=== PATIENT | female | born 1995 | race Caucasian/White ===

== ENCOUNTER 2021-06-22 08:50 | Emergency (ER) | payer BC ==
[2021-06-22] MEDS ORDERED: SODIUM CHLORIDE 0.9% 1,000 ML IV STA (10:10)
[2021-06-22] MEDS ORDERED: cefTRIAXone 1 GM in SODIUM CHLORIDE 0.9% MINIBAG 100 ML IV STA (10:10)
[2021-06-22] MEDS ORDERED: KETOROLAC 30 MG/ML VIAL IVP STA (10:10)
[2021-06-22] MEDS ORDERED: DEXAMETHASONE 10 MG/ML VIAL IVP STA (10:10)
[2021-06-22 10:50] LABS: BASOPHILS # (AUTO) 0.1 10^3/uL (0.0-0.1); BASOPHILS % (AUTO) 0.7 %; EOSINOPHILS # (AUTO) 0.1 10^3/uL (0.0-0.7); EOSINOPHILS % (AUTO) 0.8 %; HCT - HEMATOCRIT 41.6 % (37.0-47.0); LYMPHOCYTES # (AUTO) 2.4 10^3/uL (1.5-3.5); LYMPHOCYTES % (AUTO) 19.9 %; MEAN CORPUSCULAR HEMOGLOBIN 28.8 pg (27.0-31.0); MEAN CORPUSCULAR HGB CONC 33.7 g/dL (32.0-36.0); MEAN CORPUSCULAR VOLUME 85.6 fL (81.0-99.0); MEAN PLATELET VOLUME 10.4 fL (7.9-10.8); MONOCYTES # (AUTO) 0.8 10^3/uL (0.0-1.0); NEUTROPHILS # (AUTO) 8.4 10^3/uL (1.5-6.6); NEUTROPHILS % (AUTO) 71.4 %; PLT - PLATELET COUNT 345 10^3/uL (130-450); RED BLOOD COUNT 4.86 10^6/uL (4.20-5.40); RED CELL DISTRIBUTION WIDTH 11.7 % (12.0-15.0); WHITE BLOOD COUNT 11.8 x10^3/uL (4.8-10.8)
[2021-06-22 11:03] LABS: ALBUMIN 4.6 g/dL (3.2-5.5); ALBUMIN/GLOBULIN RATIO 1.3 (1.0-2.2); BILIRUBIN,TOTAL 1.1 mg/dL (0.2-1.0); CALCIUM 9.6 mg/dL (8.5-10.3); CREATININE 0.5 mg/dL (0.4-1.0); POTASSIUM 3.5 mmol/L (3.5-5.0); TOTAL PROTEIN 8.1 g/dL (6.7-8.2)
--- NOTE | 2021-06-22 11:43 | ED Physician Documentation ---
PD HPI HEENT - Stated complaint Stated Complaint: SINUS PX, ABD PX - Chief complaint Chief Complaint: General - History obtained from History obtained from: Patient - History of Present Illness Timing - onset: How many days ago (2) Timing - duration: Days (2) Timing - details: Gradual onset, Still present Location: Sinuses Improves: Medication Worsens: Swalllowing Associated symptoms: Fever, Congestion, Rhinorrhea, Cough Similar symptoms before: Diagnosis (sinusitis) Recently seen: Not recently seen - Additional information Additional information: 25-year-old female was recently returning from [place] and she has developed sinus congestion fever cough sinus pain drainage of yellow and green phlegm. She has had sinusitis a number of times previously she has had sepsis previously. She indicates that she is even having some soreness adn redness to her incision sites from her cholecystectomy that was done about 3 months ago. Review of Systems Constitutional: denies: Fever Eyes: denies: Decreased vision Ears: reports: Ear pain Nose: reports: Rhinorrhea / runny nose, Congestion, Sinus pressure / pain Cardiac: denies: Chest pain / pressure, Palpitations Respiratory: reports: Cough. denies: Dyspnea GI: denies: Abdominal Pain, Nausea, Vomiting : denies: Dysuria, Frequency Skin: denies: Rash Musculoskeletal: denies: Neck pain, Back pain, Extremity pain Neurologic: denies: Generalized weakness, Focal weakness, Numbness Psychiatric: reports: Depressed, Other (not eating/drinking well.) PD PAST MEDICAL HISTORY - Present Medications Home Medications: Ambulatory Orders Medication Instructions Recorded Confirmed Amox/Clav 875/125 [Augmentin] 1 each PO Q12H #20 tablet 06/22/21 Metoprolol Tartrate [Lopressor] 25 mg PO DAILY 06/22/21 06/22/21 Montelukast [Singulair] 10 mg PO DAILY 06/22/21 06/22/21 Ondansetron Odt [Zofran Odt] 4 mg SL Q4HR PRN 06/22/21 06/22/21 Pantoprazole [Protonix] 40 mg PO DAILY 06/22/21 06/22/21 clonazePAM [Clonazepam] 0.5 mg PO BID PRN 06/22/21 06/22/21 - Allergies Allergies/Adverse Reactions: Allergies Allergy/AdvReac Type Severity Reaction Status Date / Time prochlorperazine Allergy Unknown Verified 03/06/22 09:11 [From Compazine] PD ED PE NORMAL - Vitals Vital signs reviewed: Yes (tachy ) - General General: Alert and oriented X 3, No acute distress, Well developed/nourished, Other (thin appearing 25 y/o female ) - HEENT HEENT: Atraumatic, PERRL, EOMI, Ears normal, Other (right tonsil with exudate. bilateral maxillary sinus point tenderness) - Neck Neck: Supple, no meningeal sign, No bony TTP - Cardiac Cardiac: No murmur, Other (tachy to 120) - Respiratory Respiratory: No respiratory distress, Clear bilaterally - Abdomen Abdomen: Normal bowel sounds, Soft, Non tender, Non distended, No organomegaly - Back Back: No CVA TTP, No spinal TTP - Derm Derm: Normal color, Warm and dry, No rash - Extremities Extremities: No deformity, No edema - Neuro Neuro: Alert and oriented X 3, chemist inorganic 2-12 intact, No motor deficit, No sensory deficit, Normal speech Eye Opening: Spontaneous Motor: Obeys Commands Verbal: Oriented GCS Score: 15 - Psych Psych: Normal mood, Normal affect Results - Vitals Vitals: Vital Signs - 24 hr 06/22/21 06/22/21 06/22/21 09:08 11:11 11:39 Temperature 36.6 C 36.6 C Heart Rate 114 H 104 H 98 Respiratory 16 16 16 Rate Blood Pressure 130/81 H 116/84 H 120/86 H O2 Saturation 100 96 100 Oxygen O2 Source Room air - Labs Labs: Laboratory Tests 06/22/21 06/22/21 06/22/21 10:39 10:39 10:39 WBC 11.8 H RBC 4.86 Hgb 14.0 Hct 41.6 MCV 85.6 MCH 28.8 MCHC 33.7 RDW 11.7 L Plt Count 345 MPV 10.4 Neut # (Auto) 8.4 H Lymph # (Auto) 2.4 [place] # (Auto) 0.8 Eos # (Auto) 0.1 Baso # (Auto) 0.1 Absolute Nucleated RBC 0.00 Nucleated RBC % 0.0 Sodium 139 Potassium 3.5 Chloride 102 Carbon Dioxide 24 Anion Gap 13.0 BUN 10 Creatinine 0.5 Estimated GFR (MDRD) 153 Glucose 90 Lactic Acid 1.1 Calcium 9.6 Total Bilirubin 1.1 H AST 15 ALT 18 Alkaline Phosphatase 80 Total Protein 8.1 Albumin 4.6 Globulin 3.5 Albumin/Globulin Ratio 1.3 Lipase 33 PD MEDICAL DECISION MAKING - ED course Complexity details: reviewed results, re-evaluated patient, considered differential, d/w patient ED course: 25-year-old female who has had sinus congestion pressure cough production of yellow and green phlegm as well as aches has sinusitis and she has not been taking oral well. She arrives with a heart rate of 120 states that she always has a heart rate that is rapid and that she has some anxiety as well adding to this. She does indicate that she has not been drinking fluids well or eating much and feels that she may have a eating disorder. For this reason we placed an IV and administered a liter of saline as well as the dexamethasone and Rocephin intravenously. Departure - Departure Disposition: 01 Home, Self Care Clinical Impression: Dehydration Sinusitis Qualifiers: Sinusitis location: maxillary Chronicity: acute Recurrence: not specified as recurrent Qualified Code(s): J01.00 - Acute maxillary sinusitis, unspecified Condition: Stable Instructions: ED Sinusitis Abx Tx, ED Dehydration Follow-Up: William Andersen MD [Provider Admit Priv/Credential] - Prescriptions: Amox/Clav 875/125 [Augmentin] 1 each PO Q12H #20 tablet Comments: Nenita, today it looks like you have maxillary sinusitis and the mainstay of treatment for this is to get the sinuses to drain adequately. We have given you a dose of dexamethasone today and my recommendation is to use an [id number] decongestant such as Sudafed or Sudafed PE. In addition I have prescribed some antibiotics some Augmentin and this has been E scribed to Ran in [place].
[2021-06-22 12:11] VITALS: BP 120/87
== END 2021-06-22 12:11 | disposition home or self-care (01) ==
LOC: ED 08:50
DX: J01.00 Acute maxillary sinusitis, unspecified (principal); E86.0 Dehydration
CPT/HCPCS: 36415; 80053; 83605; 83690; 85025; 87040; 96361; 96365; 96375; 99282

== ENCOUNTER 2021-06-30 09:44 | Emergency (ER) | payer BC ==
[2021-06-30 10:33] LABS: BASOPHILS # (AUTO) 0.1 10^3/uL (0.0-0.1); EOSINOPHILS # (AUTO) 0.1 10^3/uL (0.0-0.7); EOSINOPHILS % (AUTO) 1.1 %; HCT - HEMATOCRIT 44.3 % (37.0-47.0); LYMPHOCYTES # (AUTO) 2.2 10^3/uL (1.5-3.5); LYMPHOCYTES % (AUTO) 24.8 %; MEAN CORPUSCULAR HEMOGLOBIN 29.1 pg (27.0-31.0); MEAN CORPUSCULAR HGB CONC 33.9 g/dL (32.0-36.0); MEAN CORPUSCULAR VOLUME 85.9 fL (81.0-99.0); MEAN PLATELET VOLUME 9.7 fL (7.9-10.8); MONOCYTES # (AUTO) 0.5 10^3/uL (0.0-1.0); MONOCYTES % (AUTO) 5.7 %; PLT - PLATELET COUNT 354 10^3/uL (130-450); RED BLOOD COUNT 5.16 10^6/uL (4.20-5.40); RED CELL DISTRIBUTION WIDTH 11.9 % (12.0-15.0)
[2021-06-30 10:48] LABS: ALBUMIN 4.7 g/dL (3.2-5.5); ALBUMIN/GLOBULIN RATIO 1.3 (1.0-2.2); CALCIUM 9.8 mg/dL (8.5-10.3); CREATININE 0.7 mg/dL (0.4-1.0); POTASSIUM 3.8 mmol/L (3.5-5.0); TOTAL PROTEIN 8.3 g/dL (6.7-8.2)
[2021-06-30 10:52] LABS: BILIRUBIN,URINE NEGATIVE (NEGATIVE); GLUCOSE, URINE (UA) NEGATIVE (NEGATIVE); KETONES,URINE (UA) NEGATIVE (NEGATIVE); LEUKOCYTE ESTERASE, URINE NEGATIVE (NEGATIVE); NITRITE,URINE NEGATIVE (NEGATIVE); OCCULT BLOOD,URINE NEGATIVE (NEGATIVE); PROTEIN,URINE NEGATIVE (NEGATIVE); UROBILINOGEN,URINE 0.2 (NORMAL) E.U./dL (NORMAL)
[2021-06-30 10:54] LABS: CLARITY,URINE CLEAR (CLEAR); HCG UR QUAL NEGATIVE
--- NOTE | 2021-06-30 12:13 | ED Physician Documentation ---
History of Present Illness - Stated complaint Stated Complaint: UPPER ABD PC, RT SIDE - Chief complaint Chief Complaint: Abd Pain - History obtained from History obtained from: Patient - Additonal information Additional information: The patient comes to the emergency department chief complaint of right upper quadrant abdominal pain and fullness. She states she had a cholecystectomy 3 months ago and was doing fairly well for the first couple of months but then began to have a sense of fullness and intermittent abdominal pain. She states there is no significant triggers that she can identify, though in general, she has not been eating well since her cholecystectomy and has not wanted to eat much recently. She had a CT scan and labs done prior to moving here from [place] 1 month ago, and states that these were unremarkable. She was seen a scarf gluer down in [place] who had wanted to do an ultrasound, but the patient moved here prior to that getting done. She does not have any primary care or specialty care here and was due to. No other complaints at this time. Review of Systems Ten Systems: 10 systems reviewed and negative Constitutional: reports: Reviewed and negative Eyes: reports: Reviewed and negative Ears: reports: Reviewed and negative Nose: reports: Reviewed and negative Throat: reports: Reviewed and negative Cardiac: reports: Reviewed and negative Respiratory: reports: Reviewed and negative GI: reports: Abdominal Pain : reports: Reviewed and negative Skin: reports: Reviewed and negative Musculoskeletal: reports: Reviewed and negative Neurologic: reports: Reviewed and negative Psychiatric: reports: Reviewed and negative Endocrine: reports: Reviewed and negative Immunocompromised: reports: Reviewed and negative PD PAST MEDICAL HISTORY - Past Medical History Past Medical History: Yes GI: Cholelithiasis Other Past Medical History: Sepsis - Past Surgical History Past Surgical History: Yes General: Cholecystectomy - Present Medications Home Medications: Ambulatory Orders Medication Instructions Recorded Confirmed Amox/Clav 875/125 [Augmentin] 1 each PO Q12H #20 tablet 06/22/21 Metoprolol Tartrate [Lopressor] 25 mg PO DAILY 06/22/21 06/22/21 Montelukast [Singulair] 10 mg PO DAILY 06/22/21 06/22/21 Ondansetron Odt [Zofran Odt] 4 mg SL Q4HR PRN 06/22/21 06/22/21 Pantoprazole [Protonix] 40 mg PO DAILY 06/22/21 06/22/21 clonazePAM [Clonazepam] 0.5 mg PO BID PRN 06/22/21 06/22/21 - Allergies Allergies/Adverse Reactions: Allergies Allergy/AdvReac Type Severity Reaction Status Date / Time prochlorperazine Allergy Unknown Verified 06/30/21 10:11 [From Compazine] - Social History Does the pt smoke?: No Smoking Status: Never smoker Does the pt drink ETOH?: No Does the pt have substance abuse?: No PD ED PE NORMAL - Vitals Vital signs reviewed: Yes - General General: Alert and oriented X 3, No acute distress, Well developed/nourished - HEENT HEENT: Atraumatic, PERRL, EOMI, Moist mucous membranes - Neck Neck: Supple, no meningeal sign - Cardiac Cardiac: RRR, No murmur, Strong equal pulses - Respiratory Respiratory: No respiratory distress, Clear bilaterally - Abdomen Abdomen: Soft, Non distended, Other (Right upper quadrant and epigastric tenderness, no rebound or guarding.) - Derm Derm: Normal color, Warm and dry, No rash - Extremities Extremities: No deformity, No edema, No calf tenderness / cord - Neuro Neuro: Alert and oriented X 3, offal baler 2-12 intact, Normal speech - Psych Psych: Normal mood, Normal affect Results - Vitals Vitals: Vital Signs - 24 hr 06/30/21 06/30/21 10:08 13:33 Temperature 36.4 C L 36.5 C Heart Rate 105 H 96 Respiratory 16 16 Rate Blood Pressure 124/83 H 121/79 O2 Saturation 97 98 Oxygen O2 Source Room air - Labs Labs: Laboratory Tests 06/30/21 06/30/21 06/30/21 10:26 10:26 10:39 WBC 9.0 RBC 5.16 Hgb 15.0 Hct 44.3 MCV 85.9 MCH 29.1 MCHC 33.9 RDW 11.9 L Plt Count 354 MPV 9.7 Neut # (Auto) 6.0 Lymph # (Auto) 2.2 [place] # (Auto) 0.5 Eos # (Auto) 0.1 Baso # (Auto) 0.1 Absolute Nucleated RBC 0.00 Nucleated RBC % 0.0 Sodium 137 Potassium 3.8 Chloride 102 Carbon Dioxide 25 Anion Gap 10.0 BUN 15 Creatinine 0.7 Estimated GFR (MDRD) 104 Glucose 91 Calcium 9.8 Total Bilirubin 1.0 AST 27 ALT 33 Alkaline Phosphatase 68 Total Protein 8.3 H Albumin 4.7 Globulin 3.6 Albumin/Globulin Ratio 1.3 Lipase 42 Urine Color YELLOW Urine Clarity CLEAR Urine pH 6.0 Ur Specific [place] 1.020 Urine Protein NEGATIVE Urine Glucose (UA) NEGATIVE Urine Ketones NEGATIVE Urine Occult Blood NEGATIVE Urine Nitrite NEGATIVE Urine Bilirubin NEGATIVE Urine Urobilinogen 0.2 (NORMAL) Ur Leukocyte Esterase NEGATIVE Ur Microscopic Review NOT INDICATED Urine Culture Comments NOT INDICATED Urine HCG, Qual NEGATIVE - Rads (name of study) Right upper quadrant ultrasound Radiology: Final report received, EMP read indepedently, See rad report (No acute findings; gallbladder surgically absent) PD MEDICAL DECISION MAKING - ED course Complexity details: reviewed results, re-evaluated patient, considered differential, d/w patient ED course: The patient was worked up with labs and ultrasound, all of which were un remarkable. I have advised patient to get established with primary care and discuss being reevaluated by gastroenterology for her ongoing abdominal pain and eating issues. We have discussed the usual indications for return Departure - Departure Disposition: 01 Home, Self Care Clinical Impression: Abdominal pain Qualifiers: Abdominal location: right upper quadrant Qualified Code(s): R10.11 - Right upper quadrant pain Condition: Stable Instructions: ED Abdominal Pain Female Non-Specific Abdominal Pain Follow-Up: Yong Salazar MD [Provider Admit Priv/Credential] - Comments: Your labs and ultrasound look good. Is not clear what is causing your ongoing right upper quadrant abdominal pain and appetite changes. It is very important that you follow-up in primary care to establish with a doctor and potentially get referred back to gastroenterology. You may also need an endoscopy, which your doctor can help set up. Discharge Date/Time: 06/30/21 13:34
[2021-06-30 13:35] VITALS: BP 121/79
--- NOTE | 2021-06-30 14:05 | Ultrasound Report ---
PROCEDURE: Abdomen Limited INDICATIONS: ruq pain TECHNIQUE: Real-time scanning was performed of the abdominal and retroperitoneal organs, with image documentatio n. COMPARISON: None. FINDINGS: Liver: Liver is normal in size and increased echotexture. Gallbladder: Removed. Biliary ducts: Intrahepatic bile ducts are non-dilated. Extrahepatic bile duct caliber measures 4 m m. Normal is 6-7 mm or less in diameter, or 10 mm or less post-cholecystectomy. Pancreas: Visualized portions of the pancreas are sonographically normal. Kidneys: Right kidney measures 10.0 cm long. No hydronephrosis or nephrolithiasis. No solid masses . IMPRESSION: Cholecystectomy. Right upper quadrant is otherwise unremarkable. Reviewed by: Julienne Merino MD on 06/30/2021 2:04 PM PDT Approved by: Julienne Merino MD on 06/30/2021 2:04 PM PDT Station ID: [id number]
== END 2021-06-30 13:34 | disposition home or self-care (01) ==
LOC: ED 09:44
DX: R10.11 Right upper quadrant pain (principal)
CPT/HCPCS: 36415; 80053; 81001; 81003; 81025; 83690; 85025; 87086; 99282; 99284